=== PATIENT | male | born 1955 | race Caucasian/White ===

== ENCOUNTER 2016-05-07 09:01 | Emergency (ER) | payer OTHER ==
[~2016-05-07] VITALS: Ht 170.2 cm; Wt 62.0 kg
[~2016-05-07 09:01] MED LIST: TYL500 PO
[2016-05-07 09:02] VITALS: Ht 170.2 cm; Wt 62.0 kg
--- NOTE | 2016-05-07 11:08 | ERD ---
ER Documentation Chief Complaint Date/Time DATE: 05/07/16 TIME: 11:07 Chief Complaint LEFT EYE IRRITATION, REDNESS SINCE YESTERDAY HPI This is a 60-year-old male presenting to the emergency department for left eye redness and irritation 2 days. Patient states since yesterday he has had left eye redness with no pruritus and no pain. No change in vision. No halos or spots, or opacity to vision. Denies blurry vision, partial total loss of vision. No foreign body sensation. No trauma or injury to area. No photophobia. Patient does not wear contact lenses. Patient wears glasses. No fevers or chills. Had bilateral cataract surgery in 2013. No other recent surgery or eye procedure. Patient has history of hypertension however is not on any medication at this time. ROS All systems reviewed and are negative except as per history of present illness. Medications Home Meds Active Scripts Ciprofloxacin Opht* (Ciloxan*) 0.3%-3.5 Opht Oint, 1 APPLIC LEFT EYE TID, #1 EA 0.5 inch oint to left eye TID x 2 days then BID x 5 days Prov:BOAZ DELANEY NP 05/07/16 Reported Medications Acetaminophen* (Tylenol*) 500 Mg Tab, 1000 MG PO Q4H Y for PAIN AND OR ELEVATED TEMP, TAB 09/16/13 Allergies Allergies: Coded Allergies: No Known Allergy (Unverified , 08/05/13) PMhx/Soc History of Surgery: Yes (BILATERAL CATARACT SX 2-YEARS AGO) Anesthesia Reaction: No Hx Neurological Disorder: No Hx Respiratory Disorders: No Hx Cardiac Disorders: Yes (HTN) Hx Psychiatric Problems: No Hx Miscellaneous Medical Probl: Yes (BILATERAL CATARACTS) Hx Alcohol Use: No Hx Substance Use: No Hx Tobacco Use: Yes (30-40 CIGS/DAY) Smoking Status: Current every day smoker Physical Exam Vitals Vital Signs Date Time Temp Pulse Resp B/P Pulse Ox O2 Delivery O2 Flow Rate FiO2 05/07/16 09:02 98.2 80 18 170/75 99 Physical Exam Const: No acute distress, alert Head: Atraumatic Eyes: Left eye erythema, PERRL ENT: Normal External Ears, Nose and Mouth. Neck: Full range of motion..~ No meningismus. Resp: Clear to auscultation bilaterally Cardio: Regular rate and rhythm, no murmurs Abd: Soft, non tender, non distended. Normal bowel sounds Skin: No petechiae or rashes Back: No midline or flank tenderness Ext: No cyanosis, or edema Neur: Awake and alert Psych: Normal Mood and Affect Results 24 hrs Current Medications Medications (Trade) Dose Ordered Sig/Kevin Route PRN Reason Start Time Stop Time Status Last Admin Dose Admin Fluorescein Sodium ([place]-W-Cdeeo) 1 strip ONCE ONCE LEFT EYE 05/07/16 11:30 2 11:31 DC Tetracaine HCl (Tetracaine 0.5% Oph) 1 drop ONCE ONCE LEFT EYE 05/07/16 11:30 2 11:31 DC Procedures/MDM ED COURSE: The patient was stable throughout ED course. I kept the patient and/or family informed of laboratory and diagnostic imaging results throughout the ED course. Eye Exam: One drop of tetracaine ophthalmic solution applied to left eye. Fluorescein stain strip applied. And left eye was observed under [place] lamp. Visual Acuity: Left 20/50, right 20/30, bilateral 20/30 Visual Barth: Intact in all four quadrants bilaterally Lac ducts/glands: No swelling Lids w/ evertion: Normal, no foreign body Conj/[place]: small <1mm corneal ulcer to left iris. Anterior Chamber: Clear MDM: This is a 6-year-old male presents emergency department for left eye pain and erythema 2 days. Symptoms started last night. Patient he states he has pain similar to after he had cataract surgery and had retained stitches in place. Cataract surgery was in 2003. No recent eye surgery or procedure. Fluorescein stain shows small corneal ulcer to left iris. Patient is positive for photophobia. Visual acuity results listed above. No foreign body noted. No purulent drainage. Patient denies any itching. No rhinorrhea, lymphadenopathy, cough or upper respiratory symptoms. No nausea or vomiting. Rating pain 5/10 however states it is not intolerable. Patient remains calm and comfortable throughout ED visit. Low suspicion for angle close glaucoma, hyphema, hypopyon or other ophthalmologic emergencies. Differential diagnosis includes but not limited to corneal ulceration, corneal abrasion , foreign body, allergic conjunctivitis, stye or viral conjunctivitis. Patient is appropriate for outpatient management and instructed patient to follow-up as soon as possible with data compiler. Patient will be prescribed ciprofloxacin ophthalmologic eyedrops for possible bacterial infection with corneal ulceration. Return to ED for any high fever, chest pain, difficulty breathing, shortness breath, wheezing, vomiting, diarrhea, abdominal pain or any new or worsening symptoms. Patient verbalizes understanding. All questions answered at discharge. Departure Diagnosis: Primary Impression: Eye problem Condition: Stable Referrals: BRENDA KASPER (PCP) [facility] Hours: Sun - Sun 9:00 AM - 5:00 PM BOAZ DELANEY NP May 07, 2016 11:08
[2016-05-07] MEDS ORDERED: TETRACAINE 0.5% 15 ML OPH LEFT EYE ONE (11:30)
[2016-05-07] MEDS ORDERED: FLUORESCEIN STRIP LEFT EYE ONE (11:30)
[2016-05-07] MEDS ORDERED: CPR3OO3.5 LEFT EYE (12:22)
== END 2016-05-07 12:27 | disposition home or self-care (01) ==
LOC: FTE 09:01
DX: H57.8 Other specified disorders of eye and adnexa (principal); F17.210 Nicotine dependence, cigarettes, uncomplicated; I10 Essential (primary) hypertension
CPT/HCPCS: Z7502; Z7610; 99283